=== PATIENT | female | born 1965 | race Caucasian/White ===

== ENCOUNTER → 2016-03-26 | Outpatient (CLI) | payer OTHER ==
[~2016-03-26] MED LIST: AZTH50T PO; CLIN-78 PO; HYDR-3702 PO; MIRT15TA PO; NITR100C3 PO; PENT100C3 PO
[2016-03-26 11:45] LABS: BASOPHILS % (AUTO) 1 % (0-2); EOSINOPHILS % (AUTO) 1 % (0-4); LYMPHOCYTES # (AUTO) 1.7 X10^3; MEAN CORPUSCULAR HEMOGLOBIN 29.5 PG (26.0-34.0); MEAN CORPUSCULAR HGB CONC 34.2 g/dL (31.0-37.0); MEAN CORPUSCULAR VOLUME 86 FL (80-100); MEAN PLATELET VOLUME 10.3 FL (6.0-9.5); MONOCYTES # (AUTO) 0.4 X10^3; MONOCYTES % (AUTO) 9 % (3-11); NEUTROPHILS # (AUTO) 2.3 X10^3; NEUTROPHILS % (AUTO) 52 % (51-67); PLATELET COUNT 221 10^3uL (150-450); WHITE BLOOD COUNT 4.41 10^3uL (4.0-11.0)
[2016-03-26 11:50] LABS: ANION GAP 14.5 MEQ/L (3-15)
== END ==
LOC: LAB 11:20
PROVIDERS: ATTEND Urology
DX: N30.10 Interstitial cystitis (chronic) without hematuria (principal); N39.0 Urinary tract infection, site not specified
CPT/HCPCS: 36415; 80048; 85025

== ENCOUNTER → 2016-08-11 | Outpatient (REF) | payer OTHER ==
[2016-08-11 16:18] LABS: BILIRUBIN,URINE Negative (Negative); COLOR,URINE Yellow; GLUCOSE, URINE (UA) Negative (Negative); LEUKOCYTE ESTERASE ,URINE 1+ (Negative); PH,URINE 5.5 (5.0 - 8.0); UROBILINOGEN,URINE 0.2 mg/dL (0.2-1.0)
[2016-08-11 16:22] LABS: CLARITY,URINE Slightly Cloudy
[2016-08-11 17:01] LABS: URINE CENTRIFUGED VOLUME 12 mL
== END ==
LOC: LAB 15:59
PROVIDERS: ATTEND Nurse Practitioner Family
DX: R31.9 Hematuria, unspecified (principal)
CPT/HCPCS: 81003; 81015; 87088